=== PATIENT | male | born 1990 | race Caucasian/White ===

== ENCOUNTER 2023-08-11 12:53 | Emergency (ER) | payer OTHER, SELFPAY ==
[2023-08-11] MEDS ORDERED: Ketorolac Tromethamine 30 MG (1 mL) VIAL ONE (13:30)
== END 2023-08-11 15:36 | disposition home or self-care (01) ==
LOC: CSHERS 12:53
DX: N50.812 Left testicular pain (principal); F17.210 Nicotine dependence, cigarettes, uncomplicated
CPT/HCPCS: 76870; 93976; 96372; J1885